=== PATIENT | female | born 1970 | race Caucasian/White ===

== ENCOUNTER 2016-10-31 15:07 | Emergency (ER) | payer MEDICARE ==
[2016-10-31] MEDS ORDERED: Aspirin 81 MG Tab.Chew PO ONE (15:28)
[2016-10-31] MEDS ORDERED: Sodium Chloride 0.9% 10 ML Syringe FLUSH PRN (15:29)
[2016-10-31] MEDS ORDERED: Morphine 2 MG/ML Syringe IVPUSH ONE (15:30)
--- NOTE | 2016-10-31 16:38 | EDM.PDOC ---
ED HPI GENERAL MEDICAL PROBLEM - General Chief Complaint: Chest Pain Stated Complaint: CHEST PAIN Time Seen by Provider: 10/31/16 15:07 Source of Information: Reports: Patient History Limitations: Reports: No Limitations - History of Present Illness INITIAL COMMENTS - FREE TEXT/NARRATIVE: Patient presents today with complaints of chest pain. 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 She denies SOB, fever or syncope. Onset: Today, Sudden Onset Date: 10/31/16 Onset Time: 14:00 Duration: Minutes: Location: Reports: Chest, Back Quality: Reports: Pressure, Sharp Severity: Moderate Improves with: Reports: Rest Worsens with: Reports: Breathing, Movement Associated Symptoms: Denies: Cough, Diaphoresis, Fever/Chills, Headaches, Nausea /Vomiting, Shortness of Breath, Syncope, Weakness Right Lower Anterior Chest Pain Score (Numeric/FACES): 7 - Related Data Allergies Allergy/AdvReac Type Severity Reaction Status Date / Time shrimp Allergy Anaphylactic Verified 10/31/16 15:39 Shock Home Meds: Home Meds Albuterol [Proventil Neb Soln] 2 puff IN Q4HR PRN 10/31/16 [History] ClonazePAM [KlonoPIN] 1 mg PO BID 10/31/16 [History] EPINEPHrine [Epinephrine] 10/31/16 [History] Past Medical History Respiratory History: Reports: Asthma, Pneumothorax Other Respiratory History: Pleurodesis Gastrointestinal History: Reports: Cholelithiasis 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: Neurological History: Reports: Migraines Oncologic (Cancer) History: Reports: Cervix - Past Surgical History Respiratory Surgical History: Reports: Thoracotomy, Other (See Below) Other Respiratory Surgeries/Procedures: pleurodesis Female Surgical History: Reports: D&C Neurological Surgical History: Reports: Thoracic Spine, Other (See Below) Other Neurological Surgeries/Procedures: thoracic fusion Social & Family History - Tobacco Use Smoking Status *Q: Never Smoker - Caffeine Use Caffeine Use: Reports: Coffee - Recreational Drug Use Recreational Drug Use: No ED ROS GENERAL - Review of Systems Review Of Systems: See Below Constitutional: Denies: Fever, Chills, Malaise, Weakness, Fatigue, Night Sweats HEENT: Reports: No Symptoms Respiratory: Reports: Pleuritic Chest Pain, Cough. Denies: Shortness of Breath , Wheezing, Sputum, Hemoptysis Cardiovascular: Reports: Chest Pain. Denies: Blood Pressure Problem, Claudication, Dyspnea on Exertion, Edema, Lightheadedness, Orthopnea, Palpitations, Syncope Endocrine: Denies: Fatigue, Polydypsia, Polyuria GI/Abdominal: Reports: No Symptoms : Reports: No Symptoms Musculoskeletal: Reports: Other (upper back pain, pain between shoulder blades. ) Skin: Reports: No Symptoms Neurological: Reports: Weakness. Denies: Confusion, Dizziness, Headache, Numbness, Tingling Psychiatric: Reports: No Symptoms Hematologic/Lymphatic: Reports: No Symptoms Immunologic: Reports: No Symptoms ED EXAM, GENERAL - Physical Exam Exam: See Below Free Text/Narrative:: Alisha is a 46 year old female presenting for acute onset of right chest pain with radiation to her back between her shoulder blades. She reports she developed the pain which was like pressure and sharp while driving today. Exam Limited By: No Limitations General Appearance: Alert, WD/WN, No Apparent Distress Eye Exam: Bilateral Eye: EOMI, PERRL Ears: Normal External Exam, Normal Canal, Hearing Grossly Normal, Normal TMs Ear Exam: Bilateral Ear: Auricle Normal, Canal Normal, TM normal Nose: Normal Inspection, Normal Mucosa, No Blood Throat/Mouth: Normal Inspection, Normal Lips, Normal Teeth, Normal Gums, Normal Oropharynx, Normal Voice, No Airway Compromise Head: Atraumatic, Normocephalic Neck: Normal Inspection, Supple, Non-Tender, Full Range of Motion Respiratory/Chest: No Respiratory Distress, Lungs Clear, Normal Breath Sounds, No Accessory Muscle Use, Chest Non-Tender Cardiovascular: Normal Peripheral Pulses, Regular Rate, Rhythm, No Edema, No Gallop, No Murmur, No Rub Peripheral Pulses: 2+: Radial (L), Radial (R), Dorsalis Pedis (L), Dorsalis Pedis (R) GI/Abdominal: Normal Bowel Sounds, Soft, Non-Tender, No Organomegaly, No Distention, No Abnormal Bruit, No Mass Back Exam: Normal Inspection, Full Range of Motion. No: CVA Tenderness (R), CVA Tenderness (L) Extremities: Normal Inspection, Normal Range of Motion, Non-Tender, No Pedal Edema, Normal Capillary Refill Neurological: Alert, Oriented, CN II-XII Intact, Normal Cognition, Normal Gait, No Motor/Sensory Deficits Psychiatric: Normal Affect, Normal Mood Skin Exam: Warm, Dry, Intact, Normal Color, No Rash Lymphatic: No Adenopathy Course - Vital Signs Last Recorded V/S: Last Vital Signs Temp 37.1 C 10/31/16 15:59 Pulse 66 10/31/16 18:11 Resp 13 10/31/16 18:11 BP 109/77 10/31/16 18:11 Pulse Ox 98 10/31/16 18:11 - Orders/Labs/Meds Orders: Active Orders 24 hr Category Date Time Status EKG Documentation Completion [RC] ASDIRECTED Care 10/31/16 15:29 Active Telemetry Monitoring [Cardiac Monitoring] [RC] .As Care 10/31/16 15:34 Active Directed Chest 1V Frontal [CR] Stat Exams 10/31/16 15:29 Taken Sodium Chloride 0.9% [Normal Saline] 1,000 ml Med 10/31/16 17:00 Active IV ASDIRECTED Sodium Chloride 0.9% [Saline Flush] Med 10/31/16 15:29 Active 10 ml FLUSH ASDIRECTED PRN Saline Lock Insert [OM.PC] Routine Oth 10/31/16 15:29 Ordered EKG 12 Lead [EK] Routine Ther 10/31/16 15:29 Ordered Medication Orders Sodium Chloride (Normal Saline) 1,000 mls @ 500 mls/hr IV ASDIRECTED ANNA Last Admin: 10/31/16 17:00 Dose: 500 mls/hr Sodium Chloride (Saline Flush) 10 ml FLUSH ASDIRECTED PRN PRN Reason: Keep Vein Open Last Admin: 10/31/16 15:47 Dose: 10 ml Labs: Laboratory Tests 10/31/16 10/31/16 10/31/16 Range/Units 15:51 15:51 15:51 WBC 6.7 (4.5-11.0) K/uL RBC 4.02 (3.30-5.50) M/uL Hgb 11.6 L (12.0-15.0) g/dL Hct 35.6 L (36.0-48.0) % MCV 89 (80-98) fL MCH 29 (27-31) pg MCHC 33 (32-36) % Plt Count 248 (150-400) K/uL Neut % (Auto) 46 (36-66) % Lymph % (Auto) 40 (24-44) % [place] % (Auto) 11 H (2-6) % Eos % (Auto) 2 (2-4) % Baso % (Auto) 2 H (0-1) % D-Dimer, Quantitative < 100 (0.0-400.0) ng/mL Sodium 141 (140-148) mmol/L Potassium 4.0 (3.6-5.2) mmol/L Chloride 106 (100-108) mmol/L Carbon Dioxide 30 (21-32) mmol/L Anion Gap 5.2 (5.0-14.0) mmol/L BUN 13 (7-18) mg/dL Creatinine 1.1 H (0.6-1.0) mg/dL Est Cr Clr Drug Dosing 51.08 mL/min Estimated GFR (MDRD) 54 L (>60) Glucose 93 (74-106) mg/dL Calcium 8.6 (8.5-10.1) mg/dL Total Bilirubin 0.2 (0.2-1.0) mg/dL AST 14 L (15-37) U/L ALT 14 (12-78) U/L Alkaline Phosphatase 54 (46-116) U/L Creatine Kinase (26-192) U/L CK-MB (CK-2) (0-3.6) mg/mL Troponin I < 0.017 (0.000-0.056) ng/mL Total Protein 7.2 (6.4-8.2) g/dL Albumin 3.7 (3.4-5.0) g/dL Globulin 3.5 (2.3-3.5) g/dL Albumin/Globulin Ratio 1.1 L (1.2-2.2) TSH, Ultra Sensitive 3.714 (0.358-3.740) uIU/mL 10/31/16 10/31/16 Range/Units 15:51 18:36 WBC (4.5-11.0) K/uL RBC (3.30-5.50) M/uL Hgb (12.0-15.0) g/dL Hct (36.0-48.0) % MCV (80-98) fL MCH (27-31) pg MCHC (32-36) % Plt Count (150-400) K/uL Neut % (Auto) (36-66) % Lymph % (Auto) (24-44) % [place] % (Auto) (2-6) % Eos % (Auto) (2-4) % Baso % (Auto) (0-1) % D-Dimer, Quantitative (0.0-400.0) ng/mL Sodium (140-148) mmol/L Potassium (3.6-5.2) mmol/L Chloride (100-108) mmol/L Carbon Dioxide (21-32) mmol/L Anion Gap (5.0-14.0) mmol/L BUN (7-18) mg/dL Creatinine (0.6-1.0) mg/dL Est Cr Clr Drug Dosing mL/min Estimated GFR (MDRD) (>60) Glucose (74-106) mg/dL Calcium (8.5-10.1) mg/dL Total Bilirubin (0.2-1.0) mg/dL AST (15-37) U/L ALT (12-78) U/L Alkaline Phosphatase (46-116) U/L Creatine Kinase 58 (26-192) U/L CK-MB (CK-2) 0.4 (0-3.6) mg/mL Troponin I < 0.017 (0.000-0.056) ng/mL Total Protein (6.4-8.2) g/dL Albumin (3.4-5.0) g/dL Globulin (2.3-3.5) g/dL Albumin/Globulin Ratio (1.2-2.2) TSH, Ultra Sensitive (0.358-3.740) uIU/mL Lab work reviewed with patient, all her questions answered. Second trop negative. Patient will be discharged. Meds: Medications Generic Name Dose Route Start Last Admin Trade Name Freq PRN Reason Stop Dose Admin Sodium Chloride 1,000 mls @ 500 mls/hr 10/31/16 17:00 10/31/16 17:00 Normal Saline IV 500 mls/hr ASDIRECTED ANNA Administration Sodium Chloride 10 ml 10/31/16 15:29 10/31/16 15:47 Saline Flush FLUSH 10 ml ASDIRECTED PRN Administration Keep Vein Open Discontinued Medications Generic Name Dose Route Start Last Admin Trade Name Freq PRN Reason Stop Dose Admin Aspirin 324 mg 10/31/16 15:28 10/31/16 15:39 Aspirin PO 10/31/16 15:29 324 mg ONETIME ONE Administration Ketorolac Tromethamine 30 mg 10/31/16 16:46 10/31/16 17:00 Toradol IVPUSH 10/31/16 16:47 30 mg ONETIME ONE Administration Morphine Sulfate 2 mg 10/31/16 15:30 10/31/16 15:39 Morphine IVPUSH 10/31/16 15:31 2 mg ONETIME ONE Administration - Radiology Interpretation Free Text/Narrative:: Chest x-ray reviewed with Dr. Stock, no acute findings. - Re-Assessments/Exams Free Text/Narrative Re-Assessment/Exam: 10/31/16 18:20 Use of toradol improved pain, we will repeat Trop. Free Text/Narrative Re-Assessment/Exam: 10/31/16 18:56 Pain much improved after toradol. Departure - Departure Time of Disposition: 19:08 Disposition: Home, Self-Care 01 Condition: Fair Clinical Impression: Atypical chest pain, Pleuritic chest pain Instructions: Nonspecific Chest Pain, [id number] Referrals: PCP,None [Primary Care Provider] - Forms: ED Department Discharge Additional Instructions: You are suffering from atypical chest pain, most likely pleuritic type of chest pain. It is best for you to stay hydrated, rest and use NSAIDs to assist with your pain. Your ER visit today showed that you did not have a heart attack, your cardiac lab work was well within normal values. You did show signs of dehydration, however and should stay hydrated. It would be best to return to your primary care provider for any additional testing or cardiac stress test if needed. Return to the ER at any time for worsening, issues or concerns. - My Orders Last 24 Hours: My Active Orders 10/31/16 15:29 EKG Documentation Completion [RC] ASDIRECTED Chest 1V Frontal [CR] Stat Sodium Chloride 0.9% [Saline Flush] 10 ml FLUSH ASDIRECTED PRN Saline Lock Insert [OM.PC] Routine EKG 12 Lead [EK] Routine 10/31/16 15:34 Telemetry Monitoring [Cardiac Monitoring] [RC] .As Directed 10/31/16 17:00 Sodium Chloride 0.9% [Normal Saline] 1,000 ml IV ASDIRECTED - Assessment/Plan Last 24 Hours: My Active Orders 10/31/16 15:29 EKG Documentation Completion [RC] ASDIRECTED Chest 1V Frontal [CR] Stat Sodium Chloride 0.9% [Saline Flush] 10 ml FLUSH ASDIRECTED PRN Saline Lock Insert [OM.PC] Routine EKG 12 Lead [EK] Routine 10/31/16 15:34 Telemetry Monitoring [Cardiac Monitoring] [RC] .As Directed 10/31/16 17:00 Sodium Chloride 0.9% [Normal Saline] 1,000 ml IV ASDIRECTED Assessment:: Pleuritic chest pain Atypical chest pain Negative trop x 2. Plan: Patient suffering from atypical chest pain, most likely pleuritic type of chest pain. It is best for her to stay hydrated, rest and use NSAIDs to assist with pain. The ER visit today showed that she did not have a heart attack, cardiac lab work was well within normal values. Lab work did show signs of dehydration, however and should stay hydrated. It would be best to return to her primary care provider for any additional testing or cardiac stress test if needed. Return to the ER at any time for worsening, issues or concerns.
[2016-10-31] MEDS ORDERED: Ketorolac 30 MG/ML SDV IVPUSH ONE (16:46)
[2016-10-31] MEDS ORDERED: Sodium Chloride 0.9% 1,000 ML IV SCH (17:00)
[2016-10-31 19:09] VITALS: BP 104/54
--- NOTE | 2016-11-01 11:16 | CR ---
Chest 1V Frontal INDICATION: Chest pain FINDINGS: Heart size normal. Lungs are clear. Postoperative changes mid thoracic spine.
== END 2016-10-31 19:16 | disposition home or self-care (01) ==
LOC: JP.ED 15:07
DX: R07.81 Pleurodynia (principal); J45.909 Unspecified asthma, uncomplicated; G43.909 Migraine, unspecified, not intractable, without status migrainosus; Z98.890 Other specified postprocedural states; Z91.013 Allergy to seafood; Z79.899 Other long term (current) drug therapy
CPT/HCPCS: 36415; 71010; 80053; 82550; 82553; 84443; 84484; 85025; 85379; 93005; 93010; 96374; 96375; 99285; A9270; J1885; J2270; J7040; J7050